=== PATIENT | male | born 1945 | race Caucasian/White ===

== ENCOUNTER 2024-10-13 20:14 | Emergency (ER) | payer MEDICARE, OTHER ==
[2024-10-13 20:57] LABS: #Basophils Less than 0.03 10x3/uL (0.0-0.2); %Basophils 0.2 % (0.0-1.0); %Eosinophils 1.1 % (0.0-10.0); %Lymphocytes 8.1 % (21.0-51.0); %Monocytes 5.4 % (0.0-10.0); %Neutrophils 84.9 % (42.0-75.0); Hemoglobin 12.9 g/dL (14.0-18.0); Mean Corpuscular HGB CONC 33.9 g/dL (32.0-36.0); Mean Corpuscular Hemoglobin 31.2 pg (27.0-31.0); Mean Corpuscular Volume 91.8 fL (78.0-98.0); Mean Platelet Volume 9.8 fL (7.4-10.4); Platelet Count 212 10x3/uL (130-400); RBC Distribution Width 13.1 % (11.5-14.5); Red Blood Cell (RBC) Count 4.14 mill/uL (4.70-6.10)
[2024-10-13 21:12] LABS: ALT (SGPT) 30 U/L (8-55); AST (SGOT) 23 U/L (5-34); Albumin 3.7 g/dL (3.4-4.8); Alkaline Phosphatase 61 U/L (40-110); Anion Gap 16 mmol/L (10-20); BUN (Urea Nitrogen) 15 mg/dL (8.4-25.7); Bilirubin, Total 0.4 mg/dL (0.2-1.2); Calc. Creatinine Clearance 0 mL/min (70-130); Calcium 8.2 mg/dL (7.8-10.44); Carbon Dioxide 24 mmol/L (23-31); Chloride 100 mmol/L (98-107); Estimated GFR 82; Globulin 3.2 g/dL (2.4-3.5); Glucose 252 mg/dL (83-110); Potassium 3.7 mmol/L (3.5-5.1); Protein, Total 6.9 g/dL (5.8-8.1); Sodium 136 mmol/L (136-145)
[2024-10-13 21:17] LABS: Troponin I Less than 0.010 ng/mL (< 0.028)
[2024-10-13] MEDS ORDERED: Ondansetron PF 4 MG/2 ML Vial ONE (22:22)
[2024-10-13] MEDS ORDERED: Mag-Al 1200 mg/1200 mg/30 ML UDCUP ONE (22:22)
[2024-10-13] MEDS ORDERED: Pantoprazole 40 MG VIAL ONE (22:22)
[2024-10-13] MEDS ORDERED: Lidocaine Viscous Sol 2% 15 ml UD Cup ONE (22:22)
== END 2024-10-13 23:12 | disposition home or self-care (01) ==
LOC: ERS 20:14
DX: K29.70 Gastritis, unspecified, without bleeding (principal); R07.89 Other chest pain
CPT/HCPCS: 70450; 71045; 80053; 82962; 84484; 85025; 93005; J2405; J2470; 36415; 36416; 96374; 96375